=== PATIENT | male | born 2000 | race Caucasian/White ===

== ENCOUNTER 2023-02-15 23:29 | Emergency (ER) | payer BC, SELFPAY ==
[2023-02-15 23:33] VITALS: BP 149/96; PULSE 99; RESP 18; TEMP 36.8; O2SAT 99
[2023-02-15 23:53] VITALS: RESP 18
--- NOTE | 2023-02-16 00:20 | W.ED.GENAD ---
Discharge Plan Disposition Patient Disposition: Home Condition: Stable Discharge Details Clinical Impression: Rectal foreign body Primary Care Provider: Unknown,Unknown ED Provider: Anai Bourgeois Home Meds and New Rx's Prescriptions: Continued lurasidone [Latuda] 20 mg tablet 20 mg PO DAILY Discharge Instructions Instructions: Rectal Foreign Body (ED) Additional Instructions: Call the surgery office at 9:00 this morning if you have not yet heard from them. Tell them that you have a rectal foreign body and Dr. Pelayo wants you to be seen in the office today. Return to ED for severe belly or rectal pain, fever of 100.4 or above, any other concerns. Discharge Data Discharge Date/Time-TO BE ENTERED AT DEPARTURE: 02/16/23 00:31 Medical Decision Making Case discussed with the surgeon on-call Dr. Castillo. He will see the patient in the office on Thursday and figure out the plan at that time. The patient was updated. He is nontoxic-appearing and will go home now. Medical Records Medical records reviewed: Yes I reviewed the patient's medical records. HPI General Date/Time Provider Initiated Documentation: 02/15/23 23:49. HPI Narrative: This 22-year-old male patient presents with a chief complaint of carrot stuck in his rectum. Patient was using the carrot to masturbate and it got sucked up into his rectum. This was just prior to coming in. He has no rectal or abdominal pain. There is no fever or chills and he is nontoxic in appearance. Related Data Home Medications Medication Instructions Recorded Confirmed lurasidone 20 mg tablet (Latuda) 20 mg PO DAILY 02/15/23 02/15/23 Allergies Allergy/AdvReac Type Severity Reaction Status Date / Time No Known Allergies Allergy Verified 02/15/23 23:58 General Stated Complaint: GenMedical LUISANA: 3 Review of Systems Constitutional Constitutional: Reports as per HPI, Denies chills, Denies fever(s) and Denies headache(s) Eyes Eyes: Denies blurry vision and Reports other (no redness) ENT Ears, Nose, Mouth, and Throat: Denies dizziness, Denies otalgia, Denies headache(s), Denies nasal congestion, Denies nasal discharge, Denies neck pain and Denies odynophagia Cardiovascular Cardiovascular: Denies chest pain, Denies palpitations and Denies dyspnea Respiratory Respiratory: Denies cough and Denies dyspnea Gastrointestinal Gastrointestinal: Denies abdominal pain and Denies odynophagia Genitourinary Genitourinary: Reports other (Foreign body stuck in rectum) Musculoskeletal Musculoskeletal: Denies myalgias, Denies muscle weakness, Denies neck pain and Denies numbness Integumentary/Breasts Skin/Breast: Denies erythema and Denies rash Neurologic Neurologic: Denies dizziness, Denies headache(s) and Denies numbness Endocrine Endocrine: Denies palpitations PFSH All Active Problems (Updated 02/16/23 @ 00:21 by Anai Bourgeois MD) Rectal foreign body (Acute) Acute viral pharyngitis (Acute) Social History Smoking/Tobacco Use Status: Never Smoking risk assessment performed?: Yes Alcohol Intake: current Alcohol Intake frequency: a few times a month Drug use: Never Substance use type: does not use Housing: house Do you feel safe at home: Yes Do you feel safe in your relationship?: Yes Exam Const General: no acute distress, well developed, well groomed and not in acute distress Nutritional Appearance: well nourished Orientation: alert and oriented x3 [facility] Head: normocephalic and atraumatic Ears: external ears normal Mouth: oropharynx normal and moist mucous membranes Throat: posterior oropharynx normal Eyes Conjunctivae: conjunctivae normal Neck Neck: full ROM and supple Chest Chest: normal inspection of the chest Resp Effort & Inspection: normal respiratory effort Auscultation: clear to auscultation bilaterally Cardio Rate: regular rate Rhythm: regular rhythm Heart Sounds: no murmurs and no rubs GI Inspection: normal to inspection Palpation: soft, nontender and other (non distended) Auscultation: normal bowel sounds Other: Rectum appears completely normal Skin General skin exam: no rashes or lesions noted and other (pink, warm, dry) Neuro General: patient alert, patient awake and patient oriented x3 Speech: speech normal Motor: other (TRIANA) Sensory Exam: no sensory deficits noted Extrem General: normal to inspection, full ROM and pedal edema present Psych Mental Status: mental status grossly normal Speech and Movement: speech and movement normal Affect: normal affect Course Vital Signs Vital signs: Vital Signs Temperature 36.8 C 02/15/23 23:33 Pulse 99 H 02/15/23 23:33 Respiratory Rate 18 02/15/23 23:33 Blood Pressure 149/96 H 02/15/23 23:33 Pulse Oximetry 99 02/15/23 23:33 Temperature 36.8 C 02/15/23 23:33 Temperature Source Oral 02/15/23 23:33 Pulse 99 H 02/15/23 23:33 Respiratory Rate 18 02/15/23 23:53 Respiratory Effort Normal, Non-Labored 02/15/23 23:53 Respiratory Depth Normal 02/15/23 23:53 Respiratory Pattern Normal 02/15/23 23:53 Blood Pressure 149/96 H 02/15/23 23:33 Blood Pressure Position Sitting 02/15/23 23:33 Pulse Oximetry 99 02/15/23 23:33 Oxygen Delivery Method Room Air 02/15/23 23:33 Oxygen Flow Rate 0 02/15/23 23:33 Pain Level 1 02/15/23 23:33 Procedures Other Description: Anoscope: An anoscope was inserted into the patient's rectum with him on his hands and knees. The nurse was in the room for assistance. Was unable to see the care at with anoscope. It was moved gently with a curette still was not visible. The scope was removed; patient tolerated this well. PAWSS Have you Been Recently Intoxicated or Drunk Within the Last 30 days?: No Have you Ever Experienced Previous Episodes of Alcohol Withdrawal?: No Have you ever Experienced Withdrawal Seizures?: No Have you ever Experienced Delirium Tremens(DT)s?: No Have you ever undergone Alcohol Rehabilitation Treatment (i.e, inpt ot outpatient treatment programs)?: No Have you ever Experienced Blackouts?: No Have you ever Combined Alcohol with other Downers within the last 90 days?: No Have you ever Combined Alcohol with any other Substance of Abuse during the last 90 days?: No Positive Blood Alcohol level on Presentation? [PCS.BAL]: No Evidence of Increased Autonomic Activity (i.e. HR>120, tremor, sweating, agitation, nausea)?: No Result: 0
--- NOTE | 2023-02-16 00:22 | NUR.NOTE ---
Nursing Note: PT needs follow up with surgery [facility] tomorrow for rectal foreign body. Michelle, ED
[2023-02-16 00:55] VITALS: TEMP 37
== END 2023-02-16 00:31 | disposition home or self-care (01) ==
LOC: ER 02-16 00:34
PROVIDERS: Emergency Provider Emergency Medicine
DX: T18.5XXA Foreign body in anus and rectum, initial encounter (principal)
CPT/HCPCS: 99281; 99282

== ENCOUNTER 2023-02-16 14:08 | Day surgery (SDC) | payer BC, SELFPAY ==
[2023-02-16] VITALS (9 sets, daily range): BP systolic 97–143; BP diastolic 51–101; PULSE 72–101; RESP 15–22; TEMP 36.6–37.2; O2SAT 92–99; BMI 21.1
--- NOTE | 2023-02-16 13:20 | W.ANESPRE ---
General Info Date of Service Date Performed: 02/16/23 Height: 5 ft 10 in Weight: 66.8 kg Body Mass Index (BMI): 21.1 Surgical Procedure: Operation Date: 02/16/23 14:10 Proposed Procedure Side Surgeon p Colonoscopy Timmy Marsh MD s Exploratory Laparoscopy Timmy Marsh MD Meds Allergies and Home Medications Allergies Allergy/AdvReac Type Severity Reaction Status Date / Time No Known Allergies Allergy Verified 02/16/23 14:22 Home Medication Medication Instructions Recorded lurasidone 20 mg tablet (Latuda) 20 mg PO DAILY 02/15/23 [facility] Active Problems Active Problems: Problem Status Onset Code Rectal foreign body T18.5XXA Acute viral pharyngitis J02.9 Tobacco Smoking/Tobacco Use Status: Never Alcohol Alcohol Intake: current Alcohol intake frequency: a few times a month Substance Use Substance use: Never Substance use type: does not use Vital Signs and Lab Results Lab Results Blood Type / Crossmatch: No Data to Display Complete Blood Count: No Data to Display Complete Metabolic Panel: No Data to Display Liver Function Panel: No Data to Display Coagulation Panel: No Data to Display Cardiac Panel: No Data to Display Arterial Blood Gas: No Data to Display Venous Blood Gas: No Data to Display Pancreas Panel: No Data to Display Thyroid Panel: No Data to Display Infectious Disease: No Data to Display Blood Cultures: No Data to Display Toxicology Panel: No Data to Display Anesthesia Assessment and Plan Anesthesia History Personal History: No History of Anesthesia Complications Family History: No Family History of Anesthesia Complications Exercise Tolerance Exercise Tolerance: Metabolic Equivalents>4 Pertinent Negatives Pertinent Negatives: No Symptoms of GERD, No Major Cardiovascular Symptoms or Complaints, No Major Pulmonary Symptoms or Complaints and No History of CVA/TIA Cardiac & Pulmonary Exam Cardiac Exam: Normal S1/S2 Heart Sounds Pulmonary Exam: Clear Bilateral Breath Sounds Implantable Cardiac Device Does patient have a Pacemaker or an ICD?: No Airway Exam Known Difficult Airway: No Mallampati Class: 2 Mouth Opening: Normal (> 3cm) Thyromental Distance: Greater than 3 cm Neck Range of Motion: Full ROM Neck Circumference: Normal Teeth Condition: Normal Dentition ASA Classification ASA Score: ASA 1 Emergency Case?: Yes NPO Status NPO Status: NPO Clears >2 hours, Solids >8 hours Anesthesia Plan Resuscitation Status: Full Code Anesthesia Technique: General Anesthesia (RSI dependent on when patient had coffee with cream.) Airway Planned: Endotracheal Tube Monitors Used: Standard Monitors
--- NOTE | 2023-02-16 13:29 | W.PM.HP.N ---
Date of service: 02/16/23 Time of Service: 13:29 Assessment and Plan Assessment and plan (1) Rectal foreign body: Status: Acute Assessment and plan: -CT reviewed and findings were discussed with the patient Patient will need to have general anesthesia today for relaxation for exam under anesthesia and foreign body removal. Patient has never had general anesthesia before. No one in his family has ever had problems with anesthesia that he is aware of. Risks of the procedure include but not limited to: Bleeding, infection, damage to sphincters resulting in incontinence or stenosis. Rectal laceration resulting in bleeding or or if full-thickness he may require colostomy. The foreign object is quite high up into the sigmoid colon. He may require a laparotomy to facilitate removal. Risks of this include bleeding, infection, pneumonia, blood clots, scar tissue formation infections, hernias, wound healing concerns. This is an unprepped colon. He may require require colostomy. He may require several hours worse observation postop versus overnight stay. If he requires a laparotomy, he will be in the hospital for 2 to 5 days and out of work for 4 to 6 weeks. -He does require a ride home from the hospital after the procedure. History of Present Illness Narrative: N: Pt here today because he went to the ER yesterday for FB in the rectum, pt reports he has not had a bowel movement since this happened, denies bleeding, pain is 0/10, reports in the night he woke up, did have some abdominal pain, it wasnt bad and it went away pretty quickly. Pt reports water this morning, coffee at 9am with cream and sugar. Pt reports weight from his ER visit was what he thought he weighed, he did not get weighed while in the ER. Patient was in the ER last night with a rectal foreign body.? They sent him home and told him to follow-up in the office today.? It has been in there for 12 to 16 hours.? Patient is able to pass gas.? He has not had a bowel movement.? He feels a lump in his left lower quadrant.? He has not had any pain or bleeding.? He has had no nausea or vomiting.? He has never had any surgery before.? He has never had anesthesia before.? He is not diabetic.? He has no known drug allergies.? They did not do any imaging in the ER. He had coffee with cream at 9 AM Review of Systems All systems reviewed & are unremarkable except as noted in HPI and below PFSH All Active Problems Rectal foreign body (Acute) Acute viral pharyngitis (Acute) Social History Smoking/Tobacco Use Status: Never Smoking risk assessment performed?: Yes Alcohol Intake: current Alcohol Intake frequency: a few times a month Drug use: Never Substance use type: does not use Housing: house Current gender identity: male Do you feel safe at home: Yes Do you feel safe in your relationship?: Yes Meds Allergies and Home Medications Allergies Allergy/AdvReac Type Severity Reaction Status Date / Time No Known Allergies Allergy Verified 02/16/23 10:51 Home Medications Medication Instructions Recorded Confirmed Type lurasidone 20 mg tablet (Latuda) 20 mg PO DAILY 02/15/23 02/16/23 History Exam Const Other: PHYSICAL EXAM GENERAL APPEARANCE: Alert, healthy appearance, oriented, x 3,? in no acute distress HYDRATION: Well hydrated HEAD, EYES, EARS, NECK, THROAT: Head is normocephalic, pupils equal, round, reactive to light and accommodation, ocular movement intact, sclera clear and no jaundice. ?Dentition intact LUNGS: normal respiration/normal chest excursion. ?Clear to auscultation bilaterally. ?No wheeze. ?HEART: Regular rate and rhythm. no murmurs EXTREMITY: No edema or cyanosis.? no leg pain, redness, swelling.? ABDOMEN: soft and non-tender to palpation.? Normal bowel sounds.? Rectal : normal tone. no internal/external hemorrhoids. No palpable masses Time Spent Time spent with Patient: 40-54 minutes Time was spent: preparing to see the patient(eg.review tests), obtaining and/or reviewing separately otained hiistory, ordering medications,tests, procedures, referring, communicating with other health nurse behavioral health care, indepentently interpreting results, counseling the patient and care coordination
[2023-02-16] MEDS: Lactated Ringers 1,000 ML 80 ML IV (14:25)
[2023-02-16] MEDS: Gabapentin 300 MG CAP 600 MG PO (14:34)
[2023-02-16] MEDS: Acetaminophen 500 MG TAB 1000 MG PO (14:34)
[2023-02-16] MEDS: PIPERACILLIN/TAZO 3.375 GM in Normal Saline 50 ML IVPB (15:10)
--- NOTE | 2023-02-16 15:51 | W.PM.OP ---
Date of service: 02/16/23 Time of Service: 15:51 Operative Note Operative Note DATE OF PROCEDURE: 02/16/23 PRE-OP DIAGNOSIS: Retained foreign body POST-OP DIAGNOSIS: same PROCEDURE: Anorectal exam under anesthesia with retrieval of retained foreign body; rigid proctoscopy SURGEON: Timmy Marsh ANESTHESIA TYPE: General LMA/ETT Refer to Anesthesia Record ESTIMATED BLOOD LOSS: 0 PATHOLOGY: none sent COMPLICATIONS: None Patient was transported to: PACU Patient's condition: stable Indications: Gilson is 22 years old. He had a foreign body in his rectum that he was not able to pass on his own. He was seen in our office and underwent a CT scan of the pelvis that confirmed the presence of a recto-sigmoid foreign body. Procedure Description: If the induction of general endotracheal anesthesia, inserted a Kemp urinary catheter using standard aseptic technique. It drained straw-colored urine. Next, we placed the patient in lithotomy positioning. Great care was taken to pad all the points of contact. Next, I performed an external anorectal exam. Everything appeared normal. Digital rectal exam was also performed. There is no evidence of any fissure or anal tears. Grossly, the distal rectum felt normal. I was able to palpate the retained foreign body. Using my finger, I gently angled it a bit anterior. Next, using pressure on the anterior abdominal wall, I was able to palpate the end of the object, and gently advance it towards the anus. Anus was gently dilated with fingers. This allowed the end of the foreign body to start to pass. It appeared consistent with a carrot. Once a few centimeters were beyond the anal sphincters, I was able to grasp it and completely remove it. It appeared intact, and consistent with the description that he provided before the procedure. Next, using a standard rigid proctoscope, I performed visual proctoscopy. The rectal wall was pink and healthy appearing. I saw no evidence of any trauma from the foreign body. Proctoscopy was performed up to about 22 cm. All appeared normal. Proctoscope was removed, and the patient was brought back to standard supine positioning. I remove the Kemp catheter, and he was awoken from anesthesia in usual fashion. He was transferred to the recovery unit.
--- NOTE | 2023-02-16 16:27 | W.PM.DSUDISC ---
Date of service: 02/16/23 Time of Service: 16:27 Discharge Plan Disposition Patient Disposition: Home Condition: Good Discharge Details Reason For Visit: Retained foreign body Attending Provider: Timmy Marsh Primary Care Provider: Unknown,Unknown Home Meds and New Rx's Prescriptions: No Action lurasidone [Latuda] 20 mg tablet 20 mg PO DAILY Discharge Instructions Additional Instructions: Gilson, we are able to complete your procedure today without any difficulty. I was able to perform an internal examination as well, and all appeared normal. You may have a little bit of discomfort around your anus for the next few days. [id number] medications such as Preparation H, or witch jim pads may provide some relief. You may also want to obtain a sitz bath from any pharmacy. Soak for 10-15 minutes in warm water, warm water mixed with half a cup of baking soda, or Epson salts after each bowel movement, or up to 5 times per day as needed for pain around your anus. You do not need to set up any specific follow-up appointments with us. However, if you do experience any nausea, vomiting, or abdominal pain over the next 24 hours, please contact me immediately. Otherwise, you should make a fine recovery. Activity:: Activity as Tolerated Diet:: As Tolerated DS: Diagnosis Discharge Diagnosis (1) Rectal foreign body: Status: Acute
--- NOTE | 2023-02-16 16:34 | W.ANESPOSTOP ---
Postoperative Evaluation Date, Time and Location Date Performed: 02/16/23 Time Performed: 16:34 Patient Location: Day Surgery Unit Vital Signs Most Recent Imported Vital Signs: Most Recent Vital Signs Temp Pulse Resp BP Pulse Ox 36.7 C 83 15 97/52 L 98 02/16/23 16:10 02/16/23 16:21 02/16/23 16:21 02/16/23 16:10 02/16/23 16:21 Pain Score Most Recent Pain Score: Most Recent Pain Score Pain Level 0 02/16/23 16:21 Assessment Mental Status: Awake (Alert & Oriented to Patient Baseline) Airway and Respiratory Function: Patent airway with normal (patient baseline) respiratory exam Cardiovascular Function: Hemodynamically Stable Hydration Status: Adequately Hydrated Nausea & Vomiting: No Nausea or Vomiting Pain: Pt. Denies Any Pain Peripheral Nerve Block: Patient did not receive a nerve block
== END 2023-02-16 17:40 | disposition home or self-care (01) ==
PROVIDERS: Visit Provider Surgery
PROC: (CPT 49000; principal; 2023-02-16 14:00)
DX: T18.5XXA Foreign body in anus and rectum, initial encounter (principal)
CPT/HCPCS: 45332; J2001; J2250; J2543

== ENCOUNTER 2023-06-22 04:20 | Outpatient (CLI) | payer BC, SELFPAY ==
[2023-06-22 09:55] LABS: Abs Immature Grans 0.05 10^3/uL (0.0-0.06); Absolute Basophil Count 0.03 10^3/uL (0.0-0.2); Absolute Eosinophil Count 0.25 10^3/uL (0.0-0.7); Absolute Lymphocyte Count 1.93 10^3/uL (1.2-3.4); Absolute Monocyte Count 1.45 10^3/uL (0.1-0.8); Absolute Neutrophil Count 6.99 10^3/uL (1.2-6.7); Basophils % 0.3; Eosinophils % 2.3; HCT 50.1 % (40.0-50.0); HGB 16.4 g/dL (13.5-17.5); Immature Grans % 0.5; MCH 28.1 pg (27.0-33.0); MCHC 32.7 % (32.0-36.0); MCV 86 fL (80-95); MPV 9.3 fL (8.0-11.0); Monocytes % 13.6; Neutrophils % 65.3; Platelet Count 305 10^3/uL (130-400); RBC 5.84 10^6/uL (4.36-5.78); RDW 12.7 % (11.8-14.1); RDW-SD 39.5 fL
[2023-06-22 10:20] LABS: ALT 25 U/L (16-63); AST 19 U/L (15-37); Albumin 4.2 g/dL (3.4-5.0); Alkaline Phosphatase 89 U/L (46-116); Anion Gap 5.7 mmol/L (3-11); BUN 10 mg/dL (7-18); Bilirubin, Total 0.4 mg/dL (0.2-1.0); CO2 29.3 mmol/L (21.0-32.0); Calcium 9.9 mg/dL (8.5-10.1); Calculated LDL 90 mg/dL (<100); Chloride 102 mmol/L (98-107); Cholesterol 162 mg/dL (<200); Estimated GFR 109.81 (mL/min/1.73m2); Glucose 120 mg/dL (74-106); HDL Cholesterol 54 mg/dL (40-60); Potassium 3.8 mmol/L (3.5-5.1); Sodium 137 mmol/L (136-145); TSH 1.76 uIU/mL (0.36-3.74); Total Protein 7.7 g/dL (6.4-8.2); Triglyceride 91 mg/dL (<150)
[2023-06-22 11:24] LABS: Vitamin D 25 Total 31.6 ng/mL (30-100)
== END 2023-06-22 04:21 | disposition home or self-care (01) ==
PROVIDERS: Visit Provider Psychiatry & Neurology Psychiatry
DX: F31.81 Bipolar II disorder (principal)
CPT/HCPCS: 36415; 80053; 80061; 82306; 84443; 85025